=== PATIENT | male | born 2005 | race Caucasian/White ===

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

== ENCOUNTER 2024-10-17 10:03 | Emergency (ER) | payer OTHER ==
[~2024-10-17] VITALS: Ht 188 cm; Wt 75.0 kg
[2024-10-17] MEDS ORDERED: ALBUTEROL SULFATE 8 GM HOME.PACK INH ONE (10:30)
[2024-10-17] MEDS ORDERED: INHALER, ASSIST DEVICES 1 EACH SPACER MISC ONE (10:30)
[2024-10-17] MEDS ORDERED: DOXYCYCLINE HY100 MG PO (11:21)
[2024-10-17] MEDS ORDERED: DOXYCYCLINE HYCLATE 100 MG CAP ONE (11:26)
[2024-10-17] MEDS ORDERED: DOXYCYCLINE HYCLATE 100 MG CAP PO ONE (11:30)
[2024-10-17 11:35] VITALS: BP 118/83
== END 2024-10-17 11:36 | disposition home or self-care (01) ==
LOC: ED 10:03
DX: J20.9 Acute bronchitis, unspecified (principal)
CPT/HCPCS: 71046; 94640; 94664; 99283-25

== ENCOUNTER 2025-07-20 22:18 | Emergency (ER) | payer OTHER ==
[~2025-07-20] VITALS: Ht 188 cm; Wt 73.8 kg
--- OUTSIDE RECORDS SUMMARY | ~2025-07-20 | XMS | Continuity of Care Document ---
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 Encounters No information. Functional Status No information. Immunizations + + + + | date | description | facility | + + + + | (no date) | No vaccine administered | [facility] | | | | [facility] | + + + + Medications No information. Problems + + + + | date | description | facility | + + + + | 2025-07-20 00:00 | Patient left without being | [facility] | | | seen | [facility] | + + + + Procedures No information. Results/Labs No information. Social History + + + + | date | description | facility | + + + + | (no date) | Unknown if ever smoked [facility] | | | | [facility] | + + + + Vital Signs + + + +---------+ | date | measurement | value | units | + + + +---------+ | 2025-07-20 00:00 | BMI | 20.9 | kg/m2 | + + + +---------+ | 2025-07-20 00:00 | BP_diastolic | 74 | mmHg | + + + +---------+ | 2025-07-20 00:00 | BP_systolic | 130 | mmHg | + + + +---------+ | 2025-07-20 00:00 | heart_rate | 95 | /min | + + + +---------+ | 2025-07-20 00:00 | height_metric | 187.96 | cm | + + + +---------+ | 2025-07-20 00:00 | height_standard | 74 | in | + + + +---------+ | 2025-07-20 00:00 | o2_saturation | 100 | % | + + + +---------+ | 2025-07-20 00:00 | respiration_rate | 16 | /min | + + + +---------+ | 2025-07-20 00:00 | | 98.1 | F | | | temperature_standar | | | | | d | | | + + + +---------+ | 2025-07-20 00:00 | weight_metric | 73.799 | kg | + + + +---------+ | 2025-07-20 00:00 | weight_standard | 162.700 | lb | + + + +---------+"
[~2025-07-20 22:18] MED LIST: DOXYCYCLINE HY100 MG PO
--- OUTSIDE RECORDS SUMMARY | 2025-07-20 22:24 | XMS ---
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 EGladis VISIT COUNT (12 MO.) [address] [place] [address] TOTAL 3 NOTE: Visits indicate total known visits. ED/UCC VISIT TRACKING (12 MO.) 07/20/2025 22:19 [facility] TYPE: Emergency COMPLAINT: - POSS EYE INFECTION 07/20/2025 15:49 [facility] TYPE: Emergency COMPLAINT: - EYE PROBLEM 10/17/2024 10:03 [facility] TYPE: Emergency COMPLAINT: - COLD SYMPTOMS DIAGNOSES: - Acute bronchitis, unspecified - Cough, unspecified INPATIENT VISIT TRACKING (12 MO.) No inpatient visits to display in this time frame [email or web address]
[2025-07-20] MEDS ORDERED: AMOXICILLIN500 MG PO (22:51)
[2025-07-20] MEDS ORDERED: AMOXICILLIN 500 MG HOME.PACK PO ONE (23:00)
[2025-07-20] MEDS ORDERED: ERYTHROMYCIN 3.5 GM HOME.PACK OP ONE (23:00)
[2025-07-20 23:05] VITALS: BP 143/85
== END 2025-07-20 23:05 | disposition home or self-care (01) ==
LOC: ED 22:18
DX: H10.9 Unspecified conjunctivitis (principal); H66.91 Otitis media, unspecified, right ear
CPT/HCPCS: 99283